=== PATIENT | female | born 1975 | race Caucasian/White ===

== ENCOUNTER 2018-03-06 01:44 | Emergency (ER) | payer OTHER ==
[2018-03-06 02:03] VITALS: TEMP 97.7; BMI 37.3
[2018-03-06 03:06] LABS: URINE APPEARANCE CLEAR; URINE BILIRUBIN NEGATIVE (<2.0 mg/dL); URINE BLOOD NEGATIVE (NEGATIVE); URINE COLOR LTYELLOW; URINE GLUCOSE (UA) NEGATIVE (NEGATIVE); URINE KETONE NEGATIVE (NEGATIVE); URINE LEUK ESTERASE NEGATIVE (NEGATIVE); URINE NITRITE NEGATIVE (NEGATIVE); URINE PROTEIN NEGATIVE (NEGATIVE); URINE UROBILINOGEN NEGATIVE mg/dL (0.2-1.0)
[2018-03-06 03:13] LABS: HCG,QUALITATIVE URINE NEGATIVE
[2018-03-06 03:14] LABS: EOS % 1.1 % (0-4.5); HEMATOCRIT 34.8 % (32.4-45.2); HEMOGLOBIN 11.9 GM/dL (10.7-15.3); LYMPH % 25.2 % (8-40); MCH 27.3 pg (25.7-33.7); MCHC 34.1 g/dl (32.0-36.0); MEAN PLT VOLUME 8.2 fl (7.5-11.1); MONO % 5.3 % (3.8-10.2); NEUT % 67.4 % (42.8-82.8); PLATELET COUNT 336 K/MM3 (134-434); RBC 4.35 M/mm3 (3.60-5.2); RDW 15.5 % (11.6-15.6); WHITE BLOOD COUNT 7.4 K/mm3 (4.0-10.0)
--- NOTE | 2018-03-06 03:41 | PDOC ---
Attending Attestation - Resident Resident Name: Kirit Mejia - ED Attending Attestation I have performed the following: I have examined & evaluated the patient, The case was reviewed & discussed with the resident, I agree w/resident's findings & plan - HPI HPI: 03/06/18 04:36 Pt comes with epigastric pain. States that she has been wanting to vomit for 2 days as she has epigastric pain. SHe has no fever and no chills. Labs are all WNL. Pt is anxious, but she is reassured by the normal blood tests. SHe will be discharged with GI and PMD follow up. Pt will be given maalox for her abd pain . - Physicial Exam PE: 03/06/18 04:39 Agree with resident exam. - Medical Decision Making 03/06/18 04:40 Home with PMD and GI follow up. <Dilma Ramirez - Last Filed: 03/06/18 04:40> Heart Score/ECG Review - ECG Intrepretation Comment:: 03/06/18 03:42 Normal Sinus Rhythm Normal ECG Vent. Rate 70 bpm MT interval 162 ms QRS duration 88 ms <Sam Arguello - Last Filed: 03/06/18 03:42>
[2018-03-06 03:45] LABS: ALBUMIN 3.5 g/dl (3.4-5.0); ALK PHOS 95 U/L (45-117); ANION GAP 6 (8-16); BILIRUBIN,TOTAL 0.5 mg/dL (0.2-1.0); BLOOD UREA NITROGEN 5 mg/dL (7-18); CALCIUM 8.3 mg/dL (8.5-10.1); CHLORIDE 109 mmol/L (98-107); CO2 28 mmol/L (21-32); CREATININE 0.6 mg/dL (0.55-1.02); GLUCOSE,RANDOM 98 mg/dL (74-106); SGOT/AST 18 U/L (15-37); SGPT/ALT 26 U/L (12-78); SODIUM 143 mmol/L (136-145); TOT PROT 6.7 g/dl (6.4-8.2)
--- NOTE | 2018-03-06 04:33 | PDOC ---
History of Present Illness - General Chief Complaint: Nausea/Vomiting Stated Complaint: WEAKNESS,DIZZINESS,NAUSEA Time Seen by Provider: 03/06/18 01:58 History Source: Patient Exam Limitations: No Limitations - History of Present Illness Initial Comments: 03/06/18 04:35 42f with h/o depression presents to the Ed for nausea and epigastric pain for the past 3 days. Is appearing very anxious. No surgical history. Past History - Past Medical History Allergies/Adverse Reactions: Allergies Allergy/AdvReac Type Severity Reaction Status Date / Time No Known Allergies Allergy Verified 03/06/18 02:03 Home Medications: Ambulatory Orders Ranitidine HCl [Zantac] 300 mg PO HS #30 tablet 03/06/18 Ranitidine [Zantac -] 150 mg PO BID #20 tablet 03/06/18 COPD: No Psychiatric Problems: Yes (DEPRESSION) - Reproductive History (#): 3 Para: 2 Therapeutic (s) & number: No Spontaneous : 0 - Immunization History Immunization Up to Date: Yes - Suicide/Smoking/Psychosocial Hx Smoking Status: No Smoking History: Never smoked Have you smoked in the past 12 months: No Number of Cigarettes Smoked Daily: 0 'Breaking Loose' booklet given: 06/09/14 Hx Alcohol Use: No Drug/Substance Use Hx: No Substance Use Type: None Review of Systems - Review of Systems Able to Perform ROS?: Yes Is the patient limited Stateless proficient: No Constitutional: No: Symptoms Reported HEENTM: No: Symptoms Reported Respiratory: No: Symptoms reported Cardiac (ROS): No: Symptoms Reported ABD/GI: Yes: See HPI : No: Symptoms Reported Musculoskeletal: No: Symptoms Reported All Other Systems: Reviewed and Negative *Physical Exam - Vital Signs Last Vital Signs Temp Pulse Resp BP Pulse Ox 97.7 F 70 18 118/76 100 03/06/18 01:50 03/06/18 01:50 03/06/18 01:50 03/06/18 01:50 03/06/18 01:50 - Physical Exam General Appearance: Yes: Appropriately Dressed, Obese. No: Apparent Distress HEENT: positive: EOMI, WILBUR, Normal ENT Inspection Respiratory/Chest: positive: Lungs Clear, Normal Breath Sounds. negative: Chest Tender, Respiratory Distress Cardiovascular: positive: Regular Rhythm, Regular Rate, S1, S2 Gastrointestinal/Abdominal: positive: Normal Bowel Sounds, Tender (epigastric), Flat, Soft Musculoskeletal: positive: Normal Inspection. negative: CVA Tenderness Extremity: positive: Normal Capillary Refill, Normal Inspection, Normal Range of Motion Integumentary: positive: Normal Color, Dry, Warm Neurologic: positive: Fully Oriented, Alert, Normal Mood/Affect, Other (anxious lookijng) ED Treatment Course - LABORATORY CBC & Chemistry Diagram: 03/06/18 03:07 03/06/18 03:07 - ADDITIONAL ORDERS Additional order review: Laboratory Results 03/06/18 03/06/18 03:07 01:45 Sodium 143 Potassium 4.0 Chloride 109 H Carbon Dioxide 28 Anion Gap 6 L BUN 5 L Creatinine 0.6 Creat Clearance w eGFR > 60 Random Glucose 98 Calcium 8.3 L Total Bilirubin 0.5 AST 18 ALT 26 Alkaline Phosphatase 95 Total Protein 6.7 Albumin 3.5 Urine Color Ltyellow Urine Appearance Clear Urine pH 8.0 D Ur Specific [facility] 1.009 Urine Protein Negative Urine Glucose (UA) Negative Urine Ketones Negative Urine Blood Negative Urine Nitrite Negative Urine Bilirubin Negative Urine Urobilinogen Negative Ur Leukocyte Esterase Negative Urine HCG, Qual Negative 03/06/18 03:07 RBC 4.35 MCV 80.0 MCHC 34.1 RDW 15.5 MPV 8.2 Neutrophils % 67.4 Lymphocytes % 25.2 Monocytes % 5.3 Eosinophils % 1.1 Basophils % 1.0 - RADIOLOGY Radiology Studies Ordered: Category Date Time Status GALLBLADDER US [US] Stat Ultrasound 03/06/18 02:38 Ordered Medical Decision Making - Medical Decision Making 03/06/18 04:45 42 obese female with epigastic pain and nausea. Pt is anxious, but she is reassured by the normal blood tests. SHe will be discharged with GI and PMD follow up. 03/06/18 04:46 *DC/Admit/Observation/Transfer Diagnosis at time of Disposition: Epigastric pain - Discharge Dispostion Disposition: HOME Condition at time of disposition: Improved Admit: No - Prescriptions Prescriptions: Ranitidine [Zantac -] 150 mg PO BID #20 tablet Ranitidine HCl [Zantac] 300 mg PO HS #30 tablet - Referrals Referrals: Pia Posey MD [Primary Care Provider] - Grover Anderson MD [Staff Physician] - - Patient Instructions Printed Discharge Instructions: DI for Epigastric Pain Additional Instructions: Follow up with Dr. Justin, laundry sorter and Dr. Posey within the 3-4 days. Come back to the emergency department for any new, worsening or concerning symptom. Print Language: MACEDONIAN - Post Discharge Activity
[2018-03-06] MEDS ORDERED: MAG HYDROX/AL HYDROX/SIMETH 30 ML UNIT-DOSE CUP ONE (04:37)
[2018-03-06 04:46] VITALS: BP 116/73; PULSE 64
--- NOTE | 2018-03-06 12:12 | EKG ---
Test Reason : Blood Pressure : / mmHG Vent. Rate : 070 BPM Atrial Rate : 070 BPM P-R Int : 162 ms QRS Dur : 088 ms QT Int : 414 ms P-R-T Axes : 059 059 050 degrees QTc Int : 447 ms NORMAL SINUS RHYTHM NORMAL ECG WHEN COMPARED WITH ECG OF 20-SEP-2016 00:47, NO SIGNIFICANT CHANGE WAS FOUND Confirmed by PAT CONCEPCION MD ([id number]) on 03/06/2018 12:11:56 PM Referred By: Confirmed By:PAT CONCEPCION MD
== END 2018-03-06 04:53 | disposition home or self-care (01) ==
LOC: JER 01:44
DX: R10.13 Epigastric pain (principal); F32.9 Major depressive disorder, single episode, unspecified
CPT/HCPCS: 36415; 80053; 81003; 84703; 85025; 93005; 93010; 99284-25

== ENCOUNTER 2018-04-28 01:25 | Emergency (ER) | payer OTHER ==
--- NOTE | 2018-04-28 02:00 | PDOC ---
Attending Attestation - HPI HPI: 04/28/18 02:38 Patient is a 42F with history of anxiety here today complaining of a rash along the skin fold of her breasts and upper abdomen for the past 4 days. She describes an associated burning pain and irritation. She denies fevers, chills, nausea, vomiting and pain with urination. Denies chest pain, abdominal pain and difficulty breathing. - Physicial Exam PE: GENERAL: Awake, alert, and fully oriented, in no acute distress HEAD: No signs of trauma, normocephalic, atraumatic EYES: PERRLA, EOMI, sclera anicteric, conjunctiva clear ENT: Auricles normal inspection, hearing grossly normal, nares patent, oropharynx clear without exudates. Moist mucosa NECK: Normal ROM, supple, no lymphadenopathy, JVD, or masses LUNGS: No distress, speaks full sentences, clear to auscultation bilaterally HEART: Regular rate and rhythm, normal S1 and S2, no murmurs, rubs or gallops, peripheral pulses normal and equal bilaterally. ABDOMEN: Soft, nontender, normoactive bowel sounds. No guarding, no rebound. No masses EXTREMITIES: Normal inspection, Normal range of motion, no edema. No clubbing or cyanosis. NEUROLOGICAL: Cranial nerves II through XII grossly intact. Normal speech, normal gait, no focal sensorimotor deficits SKIN: 4x4cm rash with central clearing and several satellite lesions. <Karthikeyan Velez - Last Filed: 04/28/18 02:39> - Resident Resident Name: Brayan Lr - ED Attending Attestation I have performed the following: I have examined & evaluated the patient, The case was reviewed & discussed with the resident, I agree w/resident's findings & plan, Exceptions are as noted - HPI HPI: 04/28/18 01:59 Skin lesion for 4 days c/o itchiness - Medical Decision Making 05/01/18 19:20 Pt treated and released <Vik Jorgensen - Last Filed: 05/01/18 19:20>
[2018-04-28 02:13] VITALS: BP 116/76; PULSE 82; TEMP 98.5; BMI 41.8
--- NOTE | 2018-04-28 02:31 | PDOC ---
History of Present Illness - General History Source: Patient Exam Limitations: No Limitations - History of Present Illness Initial Comments: 04/28/18 02:30 04/28/18 02:12 Patient is a 42F with history of anxiety here today complaining of a rash along the skin fold of her breasts and upper abdomen for the past 4 days. She describes an associated burning pain and irritation. She denies fevers, chills, nausea, vomiting and pain with urination. Denies chest pain, abdominal pain and difficulty breathing. 04/28/18 02:32 <Brayan Lr - Last Filed: 04/28/18 02:32> <Karthikeyan Velez - Last Filed: 04/28/18 02:40> - General Stated Complaint: INJURY TO STOMACH Time Seen by Provider: 04/28/18 01:50 Past History - Past Medical History COPD: No Psychiatric Problems: Yes (DEPRESSION) - Reproductive History (#): 3 Para: 2 Therapeutic (s) & number: No Spontaneous : 0 - Immunization History Immunization Up to Date: Yes - Suicide/Smoking/Psychosocial Hx Smoking Status: No Smoking History: Never smoked Have you smoked in the past 12 months: No Number of Cigarettes Smoked Daily: 0 'Breaking Loose' booklet given: 06/09/14 Hx Alcohol Use: No Drug/Substance Use Hx: No Substance Use Type: None <Brayan Lr - Last Filed: 04/28/18 02:32> <Karthikeyan Velez - Last Filed: 04/28/18 02:40> - Past Medical History Allergies/Adverse Reactions: Allergies Allergy/AdvReac Type Severity Reaction Status Date / Time No Known Allergies Allergy Verified 03/06/18 02:03 Home Medications: Ambulatory Orders Ranitidine HCl [Zantac] 300 mg PO HS #30 tablet 03/06/18 Ranitidine [Zantac -] 150 mg PO BID #20 tablet 03/06/18 Review of Systems - Review of Systems Comments:: 04/28/18 02:30 GENERAL/CONSTITUTIONAL: No fever or chills. No weakness. HEAD, EYES, EARS, NOSE AND THROAT: No change in vision. No sore throat. CARDIOVASCULAR: No chest pain or shortness of breath RESPIRATORY: No cough, wheezing, or hemoptysis. GASTROINTESTINAL: No nausea, vomiting, diarrhea or constipation. GENITOURINARY: No dysuria, frequency, or change in urination. MUSCULOSKELETAL: No joint or muscle swelling or pain. No neck or back pain. SKIN: No rash NEUROLOGIC: No headache, vertigo, loss of consciousness, or change in strength/ sensation. ENDOCRINE: No increased thirst. No abnormal weight change HEMATOLOGIC/LYMPHATIC: No anemia, easy bleeding, or history of blood clots. ALLERGIC/IMMUNOLOGIC: Positive for rash. <Brayan Lr - Last Filed: 04/28/18 02:32> *Physical Exam - Vital Signs Last Vital Signs Temp Pulse Resp BP Pulse Ox 98.5 F 82 18 116/76 99 04/28/18 01:56 04/28/18 01:56 04/28/18 01:56 04/28/18 01:56 04/28/18 01:56 - Physical Exam Comments: 04/28/18 02:30 GENERAL: Awake, alert, and fully oriented, in no acute distress HEAD: No signs of trauma, normocephalic, atraumatic EYES: PERRLA, EOMI, sclera anicteric, conjunctiva clear ENT: Auricles normal inspection, hearing grossly normal, nares patent, oropharynx clear without exudates. Moist mucosa NECK: Normal ROM, supple, no lymphadenopathy, JVD, or masses LUNGS: No distress, speaks full sentences, clear to auscultation bilaterally HEART: Regular rate and rhythm, normal S1 and S2, no murmurs, rubs or gallops, peripheral pulses normal and equal bilaterally. ABDOMEN: Soft, nontender, normoactive bowel sounds. No guarding, no rebound. No masses EXTREMITIES: Normal inspection, Normal range of motion, no edema. No clubbing or cyanosis. NEUROLOGICAL: Cranial nerves II through XII grossly intact. Normal speech, normal gait, no focal sensorimotor deficits SKIN: 4x4cm rash with central clearing and several satellite lesions. <Brayan Lr - Last Filed: 04/28/18 02:32> - Vital Signs Last Vital Signs Temp Pulse Resp BP Pulse Ox 98.5 F 82 18 116/76 99 04/28/18 01:56 04/28/18 01:56 04/28/18 01:56 04/28/18 01:56 04/28/18 01:56 <Karthikeyan Velez - Last Filed: 04/28/18 02:40> Medical Decision Making - Medical Decision Making 04/28/18 02:31 Patient is 27F here today with fungal infection of skin. Bandaged to prevent further irritation. Given fungal cream. Discharged with return precautions. <Brayan Lr - Last Filed: 04/28/18 02:32> *DC/Admit/Observation/Transfer - Discharge Dispostion Decision to Admit order: No <Brayan Lr - Last Filed: 04/28/18 02:32> - Attestations Scribe Attestion: 04/28/18 02:40 Documentation prepared by Karthikeyan Velez, acting as director biomedical engineering for Vik Jorgensen DO. <Karthikeyan Velez - Last Filed: 04/28/18 02:40> Diagnosis at time of Disposition: Yeast dermatitis - Discharge Dispostion Disposition: HOME Condition at time of disposition: Good - Referrals Referrals: Pia Posey MD [Primary Care Provider] - - Patient Instructions Additional Instructions: Please return if you have any new, worsening or concerning symptoms. Please call your PCP tomorrow to follow up further. - Post Discharge Activity
== END 2018-04-28 02:21 | disposition home or self-care (01) ==
LOC: JER 01:25
DX: L30.8 Other specified dermatitis (principal); F32.9 Major depressive disorder, single episode, unspecified
CPT/HCPCS: 99281-25

== ENCOUNTER 2018-11-29 17:32 | Emergency (ER) | payer OTHER ==
--- NOTE | 2018-11-29 18:02 | PDOC ---
Rapid Medical Evaluation Chief Complaint: Chest Pain Time Seen by Provider: 11/29/18 17:58 Medical Evaluation: Allergies Allergy/AdvReac Type Severity Reaction Status Date / Time No Known Allergies Allergy Verified 03/06/18 02:03 11/29/18 18:01 I performed a brief in-person evaluation of this patient. Chief complaint is: Chest pain, dyspnea, vaginal bleed x 1 week Pertinent physical exam findings include: Clear lungs, RRR, S1/S2. No calf tenderness. I have ordered the following: EKG, CXR, labs Patient will proceed to the ED for further evaluation. Discharge Disposition - Diagnosis Chest pain Qualifiers: Chest pain type: other chest pain Qualified Code(s): R07.89 - Other chest pain ; R07.8 - Other chest pain - Referrals - Patient Instructions - Post Discharge Activity
[2018-11-29 18:08] VITALS: BP 113/63; PULSE 75; TEMP 98.1; BMI 47.5
[2018-11-29 18:58] LABS: BASO % 0.7 % (0-2.0); EOS % 2.5 % (0-4.5); HEMATOCRIT 36.9 % (32.4-45.2); HEMOGLOBIN 12.4 GM/dL (10.7-15.3); LYMPH % 28.4 % (8-40); MCHC 33.8 g/dl (32.0-36.0); MEAN PLT VOLUME 8.3 fl (7.5-11.1); MONO % 5.5 % (3.8-10.2); NEUT % 62.9 % (42.8-82.8); PLATELET COUNT 405 K/MM3 (134-434); RBC 4.61 M/mm3 (3.60-5.2); RDW 14.5 % (11.6-15.6)
[2018-11-29 19:13] LABS: INR 1.12 (0.83-1.09); PROTHROMBIN TIME (PATIENT) 13.2 SEC (9.7-13.0)
[2018-11-29 19:35] LABS: ALBUMIN 3.6 g/dl (3.4-5.0); ALK PHOS 118 U/L (45-117); ANION GAP 7 MMOL/L (8-16); BILIRUBIN,TOTAL 0.6 mg/dL (0.2-1); BLOOD UREA NITROGEN 6 mg/dL (7-18); CALCIUM 8.9 mg/dL (8.5-10.1); CHLORIDE 107 mmol/L (98-107); CO2 27 mmol/L (21-32); CREATININE 0.6 mg/dL (0.55-1.3); GLUCOSE,RANDOM 119 mg/dL (74-106); POTASSIUM 3.9 mmol/L (3.5-5.1); SGOT/AST 23 U/L (15-37); SGPT/ALT 41 U/L (13-61); SODIUM 141 mmol/L (136-145); TOT PROT 7.3 g/dl (6.4-8.2)
--- NOTE | 2018-11-29 19:45 | PDOC ---
History of Present Illness - General Chief Complaint: Chest Pain Stated Complaint: CHEST PAIN Time Seen by Provider: 11/29/18 17:58 History Source: Patient Exam Limitations: No Limitations - History of Present Illness Initial Comments: 11/29/18 19:41 HISTORY OF PRESENT ILLNESS: This is a 43-year-old woman past medical history of PCOS who presents emergency department for evaluation of left-sided chest pain for the past 2 days. Patient states she notices the pain gets worse with taking a deep breath. Patient reports coughing but is nonproductive in nature. Patient states she recently started going to the gym after not using the gym for extended period of time. She has been doing aerobics classes but has not done any weightlifting. She denies any recent travel or calf pain. Patient reports having irregular menses is currently having vaginal bleeding. No recent travel or sick contacts. PAST MEDICAL HISTORY: PCOS SURGICAL HISTORY: Denies ALLERGIES: No known drug allergies REVIEW OF SYSTEMS General/Constitutional: Denies fever or chills. Denies weakness, weight change. HEENT: Denies change in vision. Denies ear pain or discharge. Denies sore throat. Cardiovascular: Left sided chest pain. Denies shortness of breath. Respiratory: Denies cough, wheezing, or hemoptysis. Gastrointestinal: Denies nausea, vomiting, diarrhea or constipation. Denies rectal bleeding. Genitourinary: Denies dysuria, frequency, or change in urination. Musculoskeletal: Denies joint or muscle swelling or pain. Denies neck or back pain. Skin and breasts: Denies rash or easy bruising. Neurologic: Denies headache, vertigo, loss of consciousness, or loss of sensation. Psychiatric: Denies depression or anxiety. Endocrine: Denies increased thirst. Denies abnormal weight change. Hematologic/Lymphatic: Denies anemia, easy bleeding, or history of blood clots. Allergic/Immunologic: Denies hives or skin allergy. Denies latex allergy. PHYSICAL EXAM General Appearance: Well-appearing, appropriately dressed. No apparent distress , no intoxication. HEENT: EOMI, PERRLA, normal ENT inspection, normal voice, TMs normal, pharynx normal. No conjunctival pallor. No photophobia, scleral icterus. Neck: Supple. Trachea midline. No tenderness, rigidity, carotid bruit, stridor , lymphadenopathy, or thyromegaly. Respiratory/Chest: Lungs CTAB. No shortness of breath, respiratory distress, accessory muscle use. No crackles, rales, rhonchi, stridor, wheezing, dullness. (+)left sided chest tenderness to light palpation. Cardiovascular: RRR. S1, S2. No JVD, murmur, bradycardia, tachycardia. Vascular Pulses: Dorsalis-Pedis (R): 2+, Dorsalis-Pedis (L): 2+ Gastrointestinal/Abdominal: Normal bowel sounds. Obese abdomen is soft, non- distended. No tenderness or rebound tenderness. No organomegaly, pulsatile mass , guarding, hernia, hepatomegaly, splenomegaly. Lymphatic: No adenopathy, tenderness. Musculoskeletal/Extremities: Normal inspection. FROM of all extremities, normal capillary refill. Pelvis Stable. No CVA tenderness. No tenderness to extremities, pedal edema, swelling, erythema or deformity. Integumentary: Appropriate color, dry, warm. No cyanosis, erythema, jaundice or rash Neurologic: sanding line operator II-XII intact. Fully oriented, alert. Appropriate mood/affect. Motor strength 5/5. No appreciable EOM palsy, facial droop or sensory deficit. 11/29/18 19:57 Past History - Past Medical History Allergies/Adverse Reactions: Allergies Allergy/AdvReac Type Severity Reaction Status Date / Time No Known Allergies Allergy Verified 03/06/18 02:03 Home Medications: Ambulatory Orders Ranitidine HCl [Zantac] 300 mg PO HS #30 tablet 03/06/18 Ranitidine [Zantac -] 150 mg PO BID #20 tablet 03/06/18 Ketoconazole 2% Cream [Nizoral 2% Cream -] 1 applic TP DAILY #1 tube 04/28/18 COPD: No Hypercholesterolemia: Yes Psychiatric Problems: Yes (DEPRESSION) - Reproductive History (#): 3 Para: 2 Therapeutic (s) & number: No Spontaneous : 0 - Immunization History Immunization Up to Date: Yes - Suicide/Smoking/Psychosocial Hx Smoking Status: No Smoking History: Never smoked Have you smoked in the past 12 months: No Number of Cigarettes Smoked Daily: 0 Information on smoking cessation initiated: No 'Breaking Loose' booklet given: 06/09/14 Hx Alcohol Use: No Drug/Substance Use Hx: No Substance Use Type: None *Physical Exam - Vital Signs Last Vital Signs Temp Pulse Resp BP Pulse Ox 98.1 F 75 18 113/63 98 11/29/18 17:58 11/29/18 17:58 11/29/18 17:58 11/29/18 17:58 11/29/18 17:58 Moderate Sedation - Procedure Monitoring Vital Signs: Procedure Monitoring Vital Signs Temperature 98.1 F 11/29/18 17:58 Pulse Rate 75 11/29/18 17:58 Respiratory Rate 18 11/29/18 17:58 Blood Pressure 113/63 11/29/18 17:58 O2 Sat by Pulse Oximetry (%) 98 11/29/18 17:58 Heart Score/ECG Review - History History: Slightly suspicious - Electrocardiogram EKG: Normal - Age Age: </= 45 - Risk Factors Based on the list above the patient has:: No risk factors known - Troponin Troponin: </= normal limit - Score Heart Score - Total: 0 - ECG Intrepretation Rhythm: Regular Rhythm - Burt Burt: Normal - ECG Impressions Normal ECG: Yes ED Treatment Course - LABORATORY CBC & Chemistry Diagram: 11/29/18 18:30 11/29/18 18:30 - ADDITIONAL ORDERS Additional order review: Laboratory Results 11/29/18 11/29/18 18:30 18:30 PT with INR 13.20 H INR 1.12 H Sodium 141 Potassium 3.9 Chloride 107 Carbon Dioxide 27 Anion Gap 7 L BUN 6 L Creatinine 0.6 Creat Clearance w eGFR > 60 Random Glucose 119 H Calcium 8.9 Total Bilirubin 0.6 AST 23 ALT 41 Alkaline Phosphatase 118 H Creatine Kinase 102 Troponin I < 0.02 Total Protein 7.3 Albumin 3.6 11/29/18 18:30 RBC 4.61 MCV 80.0 MCHC 33.8 RDW 14.5 MPV 8.3 Neutrophils % 62.9 Lymphocytes % 28.4 Monocytes % 5.5 Eosinophils % 2.5 D Basophils % 0.7 Medical Decision Making - Medical Decision Making 11/29/18 19:45 A/P: 43-year-old woman with reproducible left-sided chest pain for 2 days PERC-0 This patient is most likely musculoskeletal but I will collect one set of labs including cardiac enzymes, chest x-ray, EKG and urine. 11/29/18 21:41 Chest x-ray as read by me: Angles clear. Cardiac silhouette is within normal limits. No focal consolidations or infiltrates present. Visualized osseous structures are intact. This patient has had normal laboratory testing and chest x-ray we'll discharge the patient home to follow-up with her primary doctor. I discussed the physical exam findings, ancillary test results and final diagnoses with the patient. I answered all of the patient's questions. The patient was satisfied with the care received and felt comfortable with the discharge plan and treatment plan. The patient will call their primary care physician within 24 hours to arrange follow-up and will return to the Emergency Department with any new, persistent or worsening symptoms. 11/29/18 21:44 *DC/Admit/Observation/Transfer Diagnosis at time of Disposition: Chest pain Qualifiers: Chest pain type: other chest pain Qualified Code(s): R07.89 - Other chest pain ; R07.8 - Other chest pain - Discharge Dispostion Disposition: HOME Condition at time of disposition: Stable Decision to Admit order: No - Referrals Referrals: Pia Posey MD [Primary Care Provider] - - Patient Instructions Printed Discharge Instructions: DI for Atypical Chest Pain Additional Instructions: Take Tylenol or Motrin as needed for pain. Follow certified personal trainer's instructions for appropriate dosage. Avoid heavy lifting until reevaluated by your doctor. Call your doctor tomorrow for evaluation. Return to emergency department for any worsening pain, shortness of breath, nausea, vomiting, palpitations or any other concerns. - Post Discharge Activity
[2018-11-29 20:28] LABS: URINE APPEARANCE CLEAR; URINE BILIRUBIN NEGATIVE (<2.0 mg/dL); URINE COLOR STRAW; URINE GLUCOSE (UA) NEGATIVE (NEGATIVE); URINE KETONE NEGATIVE (NEGATIVE); URINE LEUK ESTERASE NEGATIVE (NEGATIVE); URINE NITRITE NEGATIVE (NEGATIVE); URINE PROTEIN NEGATIVE (NEGATIVE); URINE UROBILINOGEN NEGATIVE mg/dL (0.2-1.0)
[2018-11-29 20:31] LABS: HCG,QUALITATIVE URINE Negative
[2018-11-29] MEDS ORDERED: NAPROXEN 500 MG TABLET (FP) PO ONE (20:43)
[2018-11-29] MEDS ORDERED: NAPROXEN 500 MG TABLET (FP) ONE (20:53)
[2018-11-29] MEDS ORDERED: MAG HYDROX/AL HYDROX/SIMETH 30 ML UNIT-DOSE CUP PO ONE (21:42)
[2018-11-29] MEDS ORDERED: LIDOCAINE VISCOUS 2% ORAL/TOP 20 ML UNIT-DOSE CUP PO ONE (21:42)
[2018-11-29] MEDS ORDERED: LIDOCAINE VISCOUS 2% ORAL/TOP 20 ML UNIT-DOSE CUP ONE (22:05)
[2018-11-29] MEDS ORDERED: MAG HYDROX/AL HYDROX/SIMETH 30 ML UNIT-DOSE CUP ONE (22:05)
--- NOTE | 2018-11-30 12:22 | EKG ---
Test Reason : Blood Pressure : / mmHG Vent. Rate : 074 BPM Atrial Rate : 074 BPM P-R Int : 118 ms QRS Dur : 084 ms QT Int : 388 ms P-R-T Axes : 058 056 029 degrees QTc Int : 430 ms POOR DATA QUALITY, INTERPRETATION MAY BE ADVERSELY AFFECTED NORMAL SINUS RHYTHM NORMAL ECG WHEN COMPARED WITH ECG OF 06-MAR-2018 02:04, NO SIGNIFICANT CHANGE WAS FOUND Confirmed by JEFF GUERRERO, JOHN ([id number]) on 11/30/2018 12:22:33 PM Referred By: Confirmed By:JOHN AGUILAR MD
== END 2018-11-29 22:19 | disposition home or self-care (01) ==
LOC: JER 17:32
DX: R07.89 Other chest pain (principal)
CPT/HCPCS: 36415; 71046-TC-FY; 80053; 81003; 81015; 82550; 84484; 84703; 85025; 85610; 86850; 86900; 86901; 93005; 93010; 99281-25; 99283-25

== ENCOUNTER 2020-12-03 14:47 | Emergency (ER) | payer OTHER ==
[2020-12-03] MEDS ORDERED: CASIRIVIMAB (REGN10933) 1,200 MG, IMDEVIMAB (REGN10987) 1,200 MG in SODIUM CHLORIDE 230 ML IVPB ONE (14:56)
[2020-12-03 14:59] VITALS: BMI 39.9
[2020-12-03 16:09] LABS: HEMATOCRIT 38.1 % (32.4-45.2); HEMOGLOBIN 12.8 GM/dL (10.7-15.3); MCH 27.3 pg (25.7-33.7); MCHC 33.6 g/dl (32.0-36.0); MEAN CELL VOLUME 81.3 fl (80-96); MEAN PLT VOLUME 8.6 fl (7.5-11.1); PLATELET COUNT 287 K/MM3 (134-434); RBC 4.69 M/mm3 (3.60-5.2); RDW 14.4 % (11.6-15.6)
[2020-12-03 16:31] LABS: POTASSIUM 4.4 mmol/L (3.5-5.1)
[2020-12-03 16:32] LABS: CALCIUM 8.9 mg/dL (8.5-10.1)
[2020-12-03 16:33] LABS: BLOOD UREA NITROGEN 8.9 mg/dL (7-18)
[2020-12-03 16:36] LABS: CREATININE 0.8 mg/dL (0.55-1.3)
[2020-12-03 16:43] VITALS: TEMP 98.2
[2020-12-03 18:47] VITALS: BP 103/67; PULSE 80
== END 2020-12-03 18:49 | disposition home or self-care (01) ==
LOC: JCOVINFU 14:47
DX: Z11.52 Encounter for screening for COVID-19 (principal)
CPT/HCPCS: 36415; 80048; 85027; 99284-25; M0243; Q0243

== ENCOUNTER 2021-04-15 16:14 | Emergency (ER) | payer OTHER ==
[2021-04-15 16:22] VITALS: BP 103/70; PULSE 72; TEMP 98.1; BMI 40.7
[2021-04-15] MEDS ORDERED: SODIUM CHLORIDE 1,000 ML IV STA (16:28)
[2021-04-15 18:31] LABS: BASO % 0.6 % (0-2.0); EOS % 1.1 % (0-4.5); HEMATOCRIT 36.2 % (32.4-45.2); HEMOGLOBIN 12.2 GM/dL (10.7-15.3); LYMPH % 22.3 % (8-40); MCH 26.2 pg (25.7-33.7); MCHC 33.6 g/dl (32.0-36.0); MEAN PLT VOLUME 8.3 fl (7.5-11.1); MONO % 5.6 % (3.8-10.2); NEUT % 70.4 % (42.8-82.8); PLATELET COUNT 368 K/MM3 (134-434); RBC 4.64 M/mm3 (3.60-5.2); WHITE BLOOD COUNT 7.5 K/mm3 (4.0-10.0)
[2021-04-15 18:37] LABS: INR 1.14 (0.83-1.09)
[2021-04-15 18:49] LABS: CHLORIDE 109 mmol/L (98-107); SODIUM 142 mmol/L (136-145)
[2021-04-15 18:55] LABS: ALBUMIN 3.7 g/dl (3.4-5.0); ANION GAP 6 MMOL/L (8-16); CO2 27 mmol/L (21-32); GLUCOSE,RANDOM 108 mg/dL (74-106)
[2021-04-15 18:56] LABS: BLOOD UREA NITROGEN 11.5 mg/dL (7-18)
[2021-04-15 18:58] LABS: SGOT/AST 16 U/L (15-37); SGPT/ALT 29 U/L (13-61)
[2021-04-15 18:59] LABS: CREATININE 0.5 mg/dL (0.55-1.3)
[2021-04-15 19:00] LABS: BILIRUBIN,TOTAL 0.6 mg/dL (0.2-1); TOT PROT 7.2 g/dl (6.4-8.2)
[2021-04-15 19:01] LABS: ALK PHOS 103 U/L (45-117)
[2021-04-15 19:32] LABS: URINE APPEARANCE CLEAR; URINE BILIRUBIN NEGATIVE (NEGATIVE); URINE COLOR YELLOW; URINE GLUCOSE (UA) NEGATIVE (NEGATIVE); URINE KETONE NEGATIVE (NEGATIVE); URINE LEUK ESTERASE NEGATIVE (NEGATIVE); URINE NITRITE NEGATIVE (NEGATIVE); URINE PROTEIN NEGATIVE (NEGATIVE); URINE UROBILINOGEN 0.2 mg/dL (0.2-1.0)
[2021-04-15 19:35] LABS: HCG,QUALITATIVE URINE Negative
== END 2021-04-15 21:11 | disposition home or self-care (01) ==
LOC: JER 16:14
PROC: 3E0337Z Introduction of Electrolytic and Water Balance Substance into Peripheral Vein, Percutaneous Approach (ICD-10-PCS; principal; 2021-04-15)
DX: R42 Dizziness and giddiness (principal); S93.402A Sprain of unspecified ligament of left ankle, initial encounter
CPT/HCPCS: 36415; 70450-TC; 73610-TC-LT-FY; 73630-TC-LT; 80053; 81003; 82550; 84484; 84703; 85025; 85610; 87086; 93005; 93010; 99285-25

== ENCOUNTER 2022-02-10 15:54 | Emergency (ER) | payer OTHER ==
[2022-02-10 16:17] VITALS: BP 102/63; PULSE 76; TEMP 97.8; BMI 36.6
== END 2022-02-10 20:05 | disposition home or self-care (01) ==
LOC: JERFT 15:54
DX: M54.2 Cervicalgia (principal)
CPT/HCPCS: 70450-TC; 93971-TC; 99285-25

== ENCOUNTER 2023-01-20 20:49 | Emergency (ER) | payer OTHER ==
[2023-01-20 20:58] VITALS: BP 104/57; PULSE 88; RESP 18; TEMP 98.1; BMI 40.2
[2023-01-20] MEDS ORDERED: LIDOCAINE 2.5%/PRILOCAINE 2.5% 30 GRAM TUBE TP ONE (22:33)
[2023-01-20] MEDS ORDERED: LIDOCAINE 2.5%/PRILOCAINE 2.5% (5 Gram/TUBE) TP ONE (22:37)
== END 2023-01-20 23:27 | disposition home or self-care (01) ==
LOC: JER 20:49
DX: K60.2 Anal fissure, unspecified (principal)
CPT/HCPCS: 99283-25

== ENCOUNTER 2024-08-04 20:45 | Emergency (ER) | payer OTHER ==
[2024-08-04 20:51] VITALS: BP 113/76; PULSE 98; RESP 20; TEMP 98.2; BMI 39.9
[2024-08-04] MEDS ORDERED: ACETAMINOPHEN INJECTION 100 ML ONE (21:45)
[2024-08-04] MEDS ORDERED: MAG HYDROX/AL HYDROX/SIMETH 30 ML UNIT-DOSE CUP ONE (21:45)
[2024-08-04] MEDS ORDERED: FAMOTIDINE 20 MG/50 ML IVPB 20 MG/50 ML MG IVPB ONE (21:46)
[2024-08-04] MEDS: MAG HYDROX/AL HYDROX/SIMETH 30 ML UNIT-DOSE CUP PO ONE (22:45)
[2024-08-04] MEDS: ACETAMINOPHEN 1000 MG/100 ML BAG IVPB ONE (22:45)
[2024-08-04] MEDS: SODIUM CHLORIDE 0.9% 500 ML INFUS.BAG IV ONE (22:45)
[2024-08-04] MEDS: FAMOTIDINE 20 MG/50 ML IVPB 20 MG/50 ML MG IVPB ONE (22:46)
[2024-08-04 23:16] LABS: BASO % 0.4 % (0-2.0); EOS % 0.7 % (0-4.5); HEMATOCRIT 38.7 % (32.4-45.2); HEMOGLOBIN 12.9 GM/dL (10.7-15.3); LYMPH % 18.1 % (8-40); MCH 25.9 pg (25.7-33.7); MCHC 33.3 g/dl (32.0-36.0); MEAN CELL VOLUME 77.7 fl (80-96); MEAN PLT VOLUME 7.9 fl (7.5-11.1); MONO % 5.3 % (3.8-10.2); NEUT % 75.5 % (42.8-82.8); PLATELET COUNT 354 10^3/uL (134-434); RBC 4.98 M/mm3 (3.60-5.2); RDW 15.6 % (11.6-15.6); WHITE BLOOD COUNT 7.3 K/mm3 (4.0-10.0)
[2024-08-04 23:16] LABS: PH,URINE 5.5 (5.0-8.0); URINE APPEARANCE CLEAR; URINE BILIRUBIN NEGATIVE (NEGATIVE); URINE COLOR YELLOW; URINE GLUCOSE (UA) NEGATIVE (NEGATIVE); URINE KETONE 1+ (NEGATIVE); URINE LEUK ESTERASE NEGATIVE (NEGATIVE); URINE NITRITE NEGATIVE (NEGATIVE); URINE PROTEIN NEGATIVE (NEGATIVE); URINE UROBILINOGEN 0.2 mg/dL (0.2-1.0)
[2024-08-04 23:39] LABS: POTASSIUM 3.7 mmol/L (3.5-5.1)
[2024-08-04 23:42] LABS: ALBUMIN 3.7 g/dl (3.4-5.0); BLOOD UREA NITROGEN 8.8 mg/dL (7-18); CALCIUM 8.7 mg/dL (8.5-10.1)
[2024-08-04 23:45] LABS: CREATININE 0.6 mg/dL (0.55-1.3)
[2024-08-04 23:46] LABS: BILIRUBIN,TOTAL 1.6 mg/dL (0.2-1)
[2024-08-04 23:47] LABS: TOT PROT 7.2 g/dl (6.4-8.2)
== END 2024-08-05 02:30 | disposition home or self-care (01) ==
LOC: JER 20:45
PROC: 3E033GC Introduction of Other Therapeutic Substance into Peripheral Vein, Percutaneous Approach (ICD-10-PCS; principal; 2024-08-04)
PROC: 3E033NZ Introduction of Analgesics, Hypnotics, Sedatives into Peripheral Vein, Percutaneous Approach (ICD-10-PCS; 2024-08-04)
DX: R10.13 Epigastric pain (principal); R10.32 Left lower quadrant pain; G89.29 Other chronic pain; M79.661 Pain in right lower leg; K59.00 Constipation, unspecified; R53.81 Other malaise
CPT/HCPCS: 36415; 74177-TC; 76705-TC; 80053; 81003; 83605; 83690; 84439; 84443; 84481; 84703; 85025; 87086; 87186; 99285-25; J0131; Q9967